=== PATIENT | female | born 1995 | race Hispanic/Latino ===

== ENCOUNTER 2022-10-26 01:04 | Emergency (ER) | payer OTHER, MEDICAID ==
[~2022-10-26] VITALS: Ht 162.6 cm; Wt 92.1 kg
[2022-10-26 04:14] LABS: APPEARANCE,URINE CLOUDY (CLEAR); BILIRUBIN,URINE NEGATIVE (NEGATIVE); COLOR,URINE COLORLESS (YELLOW); GLUCOSE, URINE (UA) NEGATIVE (NEGATIVE); KETONES,URINE 20 mg/dL (NEGATIVE); LEUKOCYTE ESTERASE ,URINE 75 Leu/uL (NEGATIVE); NITRATE,URINE NEGATIVE (NEGATIVE); OCCULT BLOOD,URINE LARGE (NEGATIVE); PROTEIN,URINE NEGATIVE (NEGATIVE); UROBILINOGEN,URINE 0.2 mg/dL (0.2-1.0)
[2022-10-26 04:16] LABS: ADD UA MICROSCOPIC YES; HCG,QUALITATIVE URINE NEGATIVE (NEGATIVE)
[2022-10-26 04:18] LABS: MUCUS,URINE RARE LPF (None Seen); SQUAMOUS EPITHELIAL CELL,UR MOD /HPF (0-2)
[2022-10-26] MEDS ORDERED: HYDROCODONE/ACETAMINOPHEN 5/325 MG TAB PO ONE (04:30)
[2022-10-26] MEDS ORDERED: PHENAZOPYRIDINE HCL 200 MG TABLET PO ONE (04:30)
[2022-10-26] MEDS ORDERED: CEPHALEXIN 500 MG CAPSULE PO ONE (04:30)
[2022-10-26 04:38] VITALS: BP 126/73; PULSE 82; RESP 18; O2SAT 98
[2022-10-26] MEDS ORDERED: PHEN-846 PO (04:49)
[2022-10-26] MEDS ORDERED: CEPH500B PO (04:49)
== END 2022-10-26 04:56 | disposition home or self-care (01) ==
LOC: EDH 01:04
DX: N39.0 Urinary tract infection, site not specified (principal)
CPT/HCPCS: 81001; 81025; 87088